=== PATIENT | female | born 1965 | race Caucasian/White ===

== ENCOUNTER 2019-06-12 17:57 | Inpatient (IN) | payer BC ==
[~2019-06-12] VITALS: Ht 157.5 cm; Wt 77.0 kg
[2019-06-12 19:20] LABS: CLARITY,URINE CLEAR (Clear); COLOR,URINE YELLOW (Yellow); GLUCOSE, URINE NEGATIVE (Neg); KETONES,URINE TRACE mg/dl (Neg); LEUKOCYTE ESTERASE ,URINE NEGATIVE (Neg); NITRITES, URINE NEGATIVE (Neg); OCCULT BLOOD,URINE TRACE-INTACT (Neg); PROTEIN,URINE 100 mg/dl (Neg)
[2019-06-12 19:28] LABS: UA COLLECTION TYPE CLN CATCH MIDSTREAM
[2019-06-12 19:30] LABS: BACTERIA,URINE FEW /HPF (Neg); MUCUS STRANDS FEW /LPF (Neg); RBC,URINE 0-2 /HPF (0-2); SQUAMOUS EPITHELIAL CELL,UR FEW /LPF (FEW); WBC,URINE 0-4 /HPF (0-4)
[2019-06-12 20:04] LABS: BASOPHILS % (AUTO) 0.6 % (0-1); EOSINOPHILS % (AUTO) 0.2 % (0-6); HEMATOCRIT 35.8 % (35.0-45.0); HEMOGLOBIN 11.9 g/dl (12.0-16.0); LYMPHOCYTES # (AUTO) 0.8 X10'3 (1.1-4.8); LYMPHOCYTES % (AUTO) 11.4 % (21-51); MEAN CORPUSCULAR HEMOGLOBIN 28.2 PG (27.0-31.0); MEAN CORPUSCULAR HGB CONC 33.3 g/dL (33.0-36.5); MEAN CORPUSCULAR VOLUME 84.7 FL (78-98); MEAN PLATELET VOLUME 8.8 FL (7.4-10.4); MONOCYTES # (AUTO) 0.6 X10'3 (0-0.9); NEUTROPHILS # (AUTO) 5.8 X10'3 (1.8-7.7); NEUTROPHILS % (AUTO) 79.8 % (42-75); PLATELET COUNT 200 X10'3 (140-440); RED BLOOD COUNT 4.23 X10'6 (4.20-5.60); RED CELL DISTRIBUTION WIDTH 14.3 % (11.5-14.5); WHITE BLOOD COUNT 7.3 X10'3 (4.5-11.0)
[2019-06-12 20:21] LABS: PARTIAL THROMBOPLASTIN TIME 33 SECONDS (22-32)
[2019-06-12 20:25] LABS: ALANINE AMINOTRANSFERASE 60 U/L (12-78); ALBUMIN 2.8 G/DL (3.4-5.0); ALBUMIN/GLOBULIN RATIO 0.7 (1.1-1.5); ALKALINE PHOSPHATASE 122 IU/L (46-116); ANION GAP 10 (8-16); ASPARTATE AMINO TRANSFERASE 52 U/L (10-37); BILIRUBIN,TOTAL 0.7 MG/DL (0.1-1.0); BLOOD UREA NITROGEN 14 MG/DL (7-18); BUN/CREATININE RATIO 15.7 (6.6-38.0); CALCIUM 8.7 MG/DL (8.5-10.1); CHLORIDE 99 MMOL/L (99-107); CREATININE 0.89 MG/DL (0.40-0.90); GLUCOSE 131 MG/DL (70-104); POTASSIUM 3.6 MMOL/L (3.5-5.1); SODIUM 133 MMOL/L (135-145); TOTAL CARBON DIOXIDE 24.4 MMOL/L (24-32); eGFR 66 ML/MIN
[2019-06-12] MEDS ORDERED: ketorolac trometh. 30mg/ml inj. IV ONE (20:50)
[2019-06-12 20:56] LABS: C-REACTIVE PROTEIN 18.75 MG/DL (0.0-0.5)
[2019-06-12] MEDS ORDERED: ketorolac tromethamine 15mg/ml inj. IV ONE (21:00)
[2019-06-12] MEDS ORDERED: normal saline 1000ML IV soln IVB ONE (21:15)
[2019-06-12] MEDS ORDERED: LIDOcaine 1% w/epiNEPHrine 1:200,000 30ml vial IM ONE (21:15)
[2019-06-12] MEDS ORDERED: morphine 4 MG/ML inj SYRINge IV ONE (21:45)
[2019-06-12] MEDS ORDERED: OMEP20TA23 PO (22:30)
[2019-06-12] MEDS ORDERED: EST1T PO (22:30)
[2019-06-12] MEDS ORDERED: LEVO137T2 PO (22:30)
[2019-06-12] MEDS: normal saline 1000ml 1,000 ML IV SCH (22:32)
[2019-06-12] MEDS ORDERED: mag hydrox/Alum hydrox/simeth 30ml oral suspension PO PRN (22:35)
[2019-06-13 00:10] VITALS: BP 142/53
--- NOTE | 2019-06-13 00:10 | NUR ---
Received report from Sofi in the ER. Pt transferred to the ortho floor via [facility]. Pt transferred to bed x1 assist, severe pain in right arm and leg was impairing her ability to ambulate. Pt is alert and oriented x3. She reported a 9/10 pain in her right Shoulder, right leg and groin. Pt was medicated with Dilaudid once she was settled in bed.
[2019-06-13] MEDS: ondansetron/PF 4mg/2ml inj IV PRN ×2 (00:40→15:57)
[2019-06-13] MEDS: magnesium hydroxide 30ml (MOM) UD suspension PO PRN (00:42)
[2019-06-13] MEDS: HYDROmorphone inj. 0.5 MG/0.5 ML DISP.SYRIN IV PRN ×4 (04:40→21:49)
[2019-06-13 06:49] VITALS: BP 154/74
[2019-06-13 06:59] LABS: BASOPHILS % (AUTO) 0.3 % (0-1); EOSINOPHILS % (AUTO) 0 % (0-6); HEMATOCRIT 32.1 % (35.0-45.0); HEMOGLOBIN 10.8 g/dl (12.0-16.0); MEAN CORPUSCULAR HEMOGLOBIN 28.2 PG (27.0-31.0); MEAN CORPUSCULAR HGB CONC 33.5 g/dL (33.0-36.5); MEAN CORPUSCULAR VOLUME 84.2 FL (78-98); MEAN PLATELET VOLUME 8.6 FL (7.4-10.4); MONOCYTES # (AUTO) 0.6 X10'3 (0-0.9); MONOCYTES % (AUTO) 7.2 % (2-12); NEUTROPHILS # (AUTO) 6.6 X10'3 (1.8-7.7); NEUTROPHILS % (AUTO) 80.5 % (42-75); PLATELET COUNT 201 X10'3 (140-440); RED BLOOD COUNT 3.81 X10'6 (4.20-5.60); RED CELL DISTRIBUTION WIDTH 14.6 % (11.5-14.5); WHITE BLOOD COUNT 8.2 X10'3 (4.5-11.0)
[2019-06-13 07:15] LABS: RHEUM FACTOR QUAL REFLEX TITER NEGATIVE (Neg)
[2019-06-13 07:33] LABS: ALBUMIN 2.5 G/DL (3.4-5.0); ANION GAP 10 (8-16); BLOOD UREA NITROGEN 11 MG/DL (7-18); BUN/CREATININE RATIO 13.4 (6.6-38.0); CALCIUM 8.1 MG/DL (8.5-10.1); CHLORIDE 102 MMOL/L (99-107); CREATINE KINASE 22 U/L (26-192); CREATININE 0.82 MG/DL (0.40-0.90); GLUCOSE 125 MG/DL (70-104); POTASSIUM 3.7 MMOL/L (3.5-5.1); SODIUM 135 MMOL/L (135-145); TOTAL CARBON DIOXIDE 23.1 MMOL/L (24-32); eGFR 73 ML/MIN
[2019-06-13] MEDS: pantoprazole 40mg Tablet.DR PO SCH (09:02)
[2019-06-13] MEDS: enoxaparin 40mg/0.4ml syringe SUBCUT SCH (09:02)
[2019-06-13] MEDS: levoTHYROXINE 25mcg tablet PO SCH (09:02)
[2019-06-13] MEDS: estradiol 1mg tablet PO SCH (09:03)
[2019-06-13] MEDS: normal saline 1000ml 1,000 ML IV SCH ×2 (09:03→21:58)
[2019-06-13] MEDS: levoTHYROXINE 112mcg tablet PO SCH (09:03)
[2019-06-13] MEDS ORDERED: methylPREDNISolone sod succ 125mg/2ml vial IV ONE (10:45)
[2019-06-13] MEDS: HYDROcodone/acetaminophen 10/325mg tab PO PRN ×3 (11:38→20:13)
[2019-06-13] MEDS: vancomycin/NS 1 GM ADD-VANTAGE 250 ML IV SCH (15:57)
[2019-06-13 18:00] VITALS: BP 131/62
[2019-06-13] MEDS ORDERED: bisacodyl 10mg suppository rectal RC PRN (18:05)
[2019-06-13] MEDS: lactobacillus rhamnosus 10,000 MMU CELLS/CAPSULE PO SCH (20:12)
[2019-06-13 22:00] VITALS: BP 136/64
--- NOTE | 2019-06-13 22:40 | NUR ---
2nd blood culture came out positive. gram pos cocci and clusters. Dr. Mota notified. no new orders received.
[2019-06-14] MEDS: HYDROcodone/acetaminophen 10/325mg tab PO PRN ×5 (00:44→19:51)
[2019-06-14] MEDS: ondansetron/PF 4mg/2ml inj IV PRN ×3 (00:46→14:45)
[2019-06-14] MEDS: vancomycin/NS 1 GM ADD-VANTAGE 250 ML IV SCH ×2 (03:35→17:11)
[2019-06-14] MEDS: normal saline 1000ml 1,000 ML IV SCH ×2 (04:32→14:11)
--- NOTE | 2019-06-14 06:33 | NUR ---
Problems reprioritized. Patient report given, questions answered & plan of care reviewed with YAYO HANNON.
[2019-06-14 06:57] LABS: BASOPHILS % (AUTO) 0.1 % (0-1); EOSINOPHILS % (AUTO) 0.1 % (0-6); HEMATOCRIT 27.7 % (35.0-45.0); HEMOGLOBIN 9.3 g/dl (12.0-16.0); LYMPHOCYTES # (AUTO) 1.6 X10'3 (1.1-4.8); LYMPHOCYTES % (AUTO) 13.9 % (21-51); MEAN CORPUSCULAR HEMOGLOBIN 28.4 PG (27.0-31.0); MEAN CORPUSCULAR HGB CONC 33.5 g/dL (33.0-36.5); MEAN CORPUSCULAR VOLUME 84.9 FL (78-98); MEAN PLATELET VOLUME 8.5 FL (7.4-10.4); MONOCYTES # (AUTO) 1.1 X10'3 (0-0.9); MONOCYTES % (AUTO) 9.2 % (2-12); NEUTROPHILS % (AUTO) 76.7 % (42-75); PLATELET COUNT 185 X10'3 (140-440); RED BLOOD COUNT 3.27 X10'6 (4.20-5.60); RED CELL DISTRIBUTION WIDTH 14.5 % (11.5-14.5); WHITE BLOOD COUNT 11.7 X10'3 (4.5-11.0)
[2019-06-14 07:01] VITALS: BP 164/68
[2019-06-14 07:26] LABS: ALBUMIN 2.1 G/DL (3.4-5.0); ANION GAP 10 (8-16); BLOOD UREA NITROGEN 13 MG/DL (7-18); BUN/CREATININE RATIO 18.1 (6.6-38.0); CALCIUM 8.1 MG/DL (8.5-10.1); CHLORIDE 108 MMOL/L (99-107); CREATININE 0.72 MG/DL (0.40-0.90); GLUCOSE 116 MG/DL (70-104); SODIUM 141 MMOL/L (135-145); TOTAL CARBON DIOXIDE 23.1 MMOL/L (24-32); eGFR 84 ML/MIN
[2019-06-14] MEDS: levoTHYROXINE 25mcg tablet PO SCH (07:54)
[2019-06-14] MEDS: lactobacillus rhamnosus 10,000 MMU CELLS/CAPSULE PO SCH ×2 (07:54→19:50)
[2019-06-14] MEDS: pantoprazole 40mg Tablet.DR PO SCH (07:55)
[2019-06-14] MEDS: levoTHYROXINE 112mcg tablet PO SCH (07:55)
[2019-06-14] MEDS: estradiol 1mg tablet PO SCH (07:55)
[2019-06-14] MEDS: enoxaparin 40mg/0.4ml syringe SUBCUT SCH (07:55)
[2019-06-14] MEDS: HYDROmorphone inj. 0.5 MG/0.5 ML DISP.SYRIN IV PRN ×4 (09:31→22:38)
[2019-06-14 11:14] VITALS: BP 146/68
[2019-06-14] MEDS ORDERED: iohexol 300mg/ml 100ml inj. ONE (16:10)
[2019-06-14 18:00] VITALS: BP 164/68
[2019-06-14 22:00] VITALS: BP 142/66
[2019-06-15] MEDS: HYDROcodone/acetaminophen 10/325mg tab PO PRN ×5 (00:14→23:29)
[2019-06-15] MEDS: vancomycin/NS 1 GM ADD-VANTAGE 250 ML IV SCH ×4 (00:14→23:40)
[2019-06-15] MEDS: normal saline 1000ml 1,000 ML IV SCH ×4 (00:17→23:34)
[2019-06-15] MEDS: HYDROmorphone inj. 0.5 MG/0.5 ML DISP.SYRIN IV PRN ×5 (03:05→21:33)
--- NOTE | 2019-06-15 03:09 | NUR ---
LAB CALLED FOR A POSITIVE BLOOD CULTURE; AEROBIC BOTTLE IS POSITIVE AT 14.77HOURS FOR GRAM (+) COCCI IN CLUSTERS. PRIMARY NURSE AND CHARGE NURSE NOTIFIED. WILL NOTIFY
--- NOTE | 2019-06-15 03:33 | NUR ---
4010D OUSMANE DAVENPORT 53 HERE FOR SHOULDER PAIN/LEG CELLULITIS HAS ANOTHER (3RD) POSITIVE BLOOD CULTURE. ITS GRAM POS COCCI AND CLUSTERS. PT IS ON VANCO. FROM [address] LEDEZMA NOTIFIED. NO NEW ORDER RECEIVED.
--- NOTE | 2019-06-15 06:19 | NUR ---
Patient in room ORTHO 4015. I have received report from YAYO HANNON and had the opportunity to ask questions and assume patient care.
[2019-06-15 06:24] LABS: BASOPHILS % (AUTO) 0.3 % (0-1); EOSINOPHILS # (AUTO) 0.2 X10'3 (0-0.9); HEMATOCRIT 29.5 % (35.0-45.0); HEMOGLOBIN 9.6 g/dl (12.0-16.0); LYMPHOCYTES # (AUTO) 2.7 X10'3 (1.1-4.8); LYMPHOCYTES % (AUTO) 17.3 % (21-51); MEAN CORPUSCULAR HEMOGLOBIN 27.6 PG (27.0-31.0); MEAN CORPUSCULAR HGB CONC 32.4 g/dL (33.0-36.5); MEAN CORPUSCULAR VOLUME 85.1 FL (78-98); MEAN PLATELET VOLUME 8.4 FL (7.4-10.4); MONOCYTES # (AUTO) 1.2 X10'3 (0-0.9); MONOCYTES % (AUTO) 7.6 % (2-12); NEUTROPHILS # (AUTO) 11.6 X10'3 (1.8-7.7); NEUTROPHILS % (AUTO) 73.8 % (42-75); PLATELET COUNT 253 X10'3 (140-440); RED BLOOD COUNT 3.46 X10'6 (4.20-5.60); RED CELL DISTRIBUTION WIDTH 14.7 % (11.5-14.5); WHITE BLOOD COUNT 15.8 X10'3 (4.5-11.0)
[2019-06-15 06:36] VITALS: BP 144/81
[2019-06-15 06:43] LABS: ALBUMIN 1.9 G/DL (3.4-5.0); ANION GAP 10 (8-16); BLOOD UREA NITROGEN 14 MG/DL (7-18); BUN/CREATININE RATIO 16.7 (6.6-38.0); CALCIUM 7.8 MG/DL (8.5-10.1); CHLORIDE 107 MMOL/L (99-107); CREATININE 0.84 MG/DL (0.40-0.90); GLUCOSE 95 MG/DL (70-104); POTASSIUM 3.5 MMOL/L (3.5-5.1); SODIUM 140 MMOL/L (135-145); TOTAL CARBON DIOXIDE 23.1 MMOL/L (24-32); eGFR 71 ML/MIN
[2019-06-15] MEDS: ondansetron/PF 4mg/2ml inj IV PRN ×2 (07:52→21:38)
[2019-06-15] MEDS: levoTHYROXINE 112mcg tablet PO SCH (07:52)
[2019-06-15] MEDS: enoxaparin 40mg/0.4ml syringe SUBCUT SCH (07:52)
[2019-06-15] MEDS: levoTHYROXINE 25mcg tablet PO SCH (07:52)
[2019-06-15] MEDS: lactobacillus rhamnosus 10,000 MMU CELLS/CAPSULE PO SCH ×2 (07:53→19:02)
[2019-06-15] MEDS: pantoprazole 40mg Tablet.DR PO SCH (07:53)
[2019-06-15] MEDS: estradiol 1mg tablet PO SCH (07:53)
[2019-06-15 10:08] VITALS: BP 152/82
[2019-06-15] MEDS ORDERED: VANCOMYCIN LEVEL IV ONE (15:30)
[2019-06-15 18:00] VITALS: BP 140/59
--- NOTE | 2019-06-15 18:09 | NUR ---
Patient in room ORTHO 4015. I have received report from YAYO PAIGE and had the opportunity to ask questions and assume patient care.
[2019-06-15 22:00] VITALS: BP 134/60
[2019-06-16] MEDS: HYDROmorphone inj. 0.5 MG/0.5 ML DISP.SYRIN IV PRN ×4 (01:42→14:16)
[2019-06-16] MEDS: HYDROcodone/acetaminophen 10/325mg tab PO PRN ×5 (03:49→23:35)
[2019-06-16] MEDS: ondansetron/PF 4mg/2ml inj IV PRN ×3 (05:49→23:25)
[2019-06-16 06:00] VITALS: BP 101/68
[2019-06-16 06:06] LABS: ALBUMIN 1.7 G/DL (3.4-5.0); ANION GAP 9 (8-16); BLOOD UREA NITROGEN 13 MG/DL (7-18); BUN/CREATININE RATIO 18.1 (6.6-38.0); CALCIUM 7.8 MG/DL (8.5-10.1); CHLORIDE 104 MMOL/L (99-107); CREATININE 0.72 MG/DL (0.40-0.90); GLUCOSE 103 MG/DL (70-104); POTASSIUM 3.4 MMOL/L (3.5-5.1); SODIUM 137 MMOL/L (135-145); TOTAL CARBON DIOXIDE 24.3 MMOL/L (24-32); eGFR 84 ML/MIN
[2019-06-16 06:09] LABS: BASOPHILS # (AUTO) 0.1 X10'3 (0-0.2); BASOPHILS % (AUTO) 0.3 % (0-1); EOSINOPHILS # (AUTO) 0.3 X10'3 (0-0.9); EOSINOPHILS % (AUTO) 1.6 % (0-6); HEMATOCRIT 28.5 % (35.0-45.0); HEMOGLOBIN 9.3 g/dl (12.0-16.0); LYMPHOCYTES # (AUTO) 2.5 X10'3 (1.1-4.8); LYMPHOCYTES % (AUTO) 15.6 % (21-51); MEAN CORPUSCULAR HEMOGLOBIN 27.6 PG (27.0-31.0); MEAN CORPUSCULAR HGB CONC 32.8 g/dL (33.0-36.5); MEAN CORPUSCULAR VOLUME 83.9 FL (78-98); MEAN PLATELET VOLUME 8.1 FL (7.4-10.4); MONOCYTES % (AUTO) 5.9 % (2-12); NEUTROPHILS # (AUTO) 12.5 X10'3 (1.8-7.7); NEUTROPHILS % (AUTO) 76.6 % (42-75); PLATELET COUNT 280 X10'3 (140-440); RED BLOOD COUNT 3.39 X10'6 (4.20-5.60); RED CELL DISTRIBUTION WIDTH 14.9 % (11.5-14.5); WHITE BLOOD COUNT 16.3 X10'3 (4.5-11.0)
--- NOTE | 2019-06-16 06:37 | NUR ---
Problems reprioritized. Patient report given, questions answered & plan of care reviewed with YAYO TURNER.
--- NOTE | 2019-06-16 06:44 | NUR ---
Patient in room ORTHO 4015. I have received report from Chelle ZEE and had the opportunity to ask questions and assume patient care.
[2019-06-16] MEDS: levoTHYROXINE 25mcg tablet PO SCH (07:17)
[2019-06-16] MEDS: enoxaparin 40mg/0.4ml syringe SUBCUT SCH (07:17)
[2019-06-16] MEDS: levoTHYROXINE 112mcg tablet PO SCH (07:17)
[2019-06-16] MEDS: pantoprazole 40mg Tablet.DR PO SCH (07:17)
[2019-06-16] MEDS: lactobacillus rhamnosus 10,000 MMU CELLS/CAPSULE PO SCH ×2 (07:17→19:13)
[2019-06-16] MEDS: vancomycin/NS 1 GM ADD-VANTAGE 250 ML IV SCH (07:18)
[2019-06-16] MEDS: magnesium hydroxide 30ml (MOM) UD suspension PO PRN (07:29)
--- NOTE | 2019-06-16 08:36 | NUR ---
PAGER ID: [phone] MESSAGE: RE: [id number] Stanley Clarke is 3.4 can replacement be ordered please, will continue to monitor
[2019-06-16] MEDS: estradiol 1mg tablet PO SCH (09:28)
[2019-06-16 10:00] VITALS: BP 132/63
[2019-06-16] MEDS ORDERED: potassium Cl 20 mEq SR tablet PO STA (10:07)
[2019-06-16] MEDS: cefazolin/dext.iso 2gm/100ml 100 ML IV SCH (15:37)
[2019-06-16 18:00] VITALS: BP 157/76
--- NOTE | 2019-06-16 18:15 | NUR ---
Problems reprioritized. Patient report given, questions answered & plan of care reviewed with Keara ZEE.
[2019-06-16] MEDS ORDERED: HYDROcodone/acetaminophen 10/325mg tab PO PRN (18:50)
--- NOTE | 2019-06-16 19:08 | NUR ---
talked to Gabe about pain control. ordered to start 2 norco 10's now, increased dilaudid to q6 hours and added cymblata nightly first dose now. pt concerned about pain control and wants routine - will put times on board when pt can request pain medication. educated on side effects and efficacy of meds.
[2019-06-16] MEDS: duloxetine 30mg CAPSULE.DR PO SCH (19:13)
[2019-06-16] MEDS ORDERED: ketorolac tromethamine 15mg/ml inj. IV SCH (20:00)
--- NOTE | 2019-06-16 20:46 | NUR ---
pt refuses scd's b/c of leg tenderness Addendum: 06/16/19 at 6 by Keara Daugherty RN Amended: Links added.
[2019-06-16 22:00] VITALS: BP 131/39
--- NOTE | 2019-06-16 23:42 | NUR ---
pt stated the 2 norco's made her sick to her stomach. wants to try just 1 norco with zofran.
[2019-06-17] MEDS: cefazolin/dext.iso 2gm/100ml 100 ML IV SCH ×4 (00:09→23:51)
[2019-06-17] MEDS: HYDROmorphone inj. 0.5 MG/0.5 ML DISP.SYRIN IV PRN ×3 (01:09→23:10)
[2019-06-17] MEDS: HYDROcodone/acetaminophen 10/325mg tab PO PRN ×3 (05:01→17:41)
--- NOTE | 2019-06-17 05:30 | NUR ---
pt requested IVF restarted. "I think I'm dehydrated. I've been sweating all night and my neck and head hurts." orders received from Sofía DONNELLY.
[2019-06-17] MEDS: ondansetron/PF 4mg/2ml inj IV PRN ×3 (05:36→23:09)
[2019-06-17] MEDS: normal saline 1000ml 1,000 ML IV SCH ×2 (05:36→17:40)
[2019-06-17 06:00] VITALS: BP 142/77
--- NOTE | 2019-06-17 06:34 | NUR ---
reported to days. noted pt states "I think I'm feeling a little better. make sure I get food with my norco"
[2019-06-17 06:43] LABS: BASOPHILS # (AUTO) 0.1 X10'3 (0-0.2); BASOPHILS % (AUTO) 0.3 % (0-1); EOSINOPHILS # (AUTO) 0.3 X10'3 (0-0.9); EOSINOPHILS % (AUTO) 1.5 % (0-6); HEMATOCRIT 29.4 % (35.0-45.0); HEMOGLOBIN 9.6 g/dl (12.0-16.0); LYMPHOCYTES % (AUTO) 11.8 % (21-51); MEAN CORPUSCULAR HEMOGLOBIN 27.6 PG (27.0-31.0); MEAN CORPUSCULAR HGB CONC 32.6 g/dL (33.0-36.5); MEAN CORPUSCULAR VOLUME 84.6 FL (78-98); MEAN PLATELET VOLUME 7.8 FL (7.4-10.4); MONOCYTES % (AUTO) 5.8 % (2-12); NEUTROPHILS # (AUTO) 13.6 X10'3 (1.8-7.7); NEUTROPHILS % (AUTO) 80.6 % (42-75); PLATELET COUNT 348 X10'3 (140-440); RED BLOOD COUNT 3.48 X10'6 (4.20-5.60); RED CELL DISTRIBUTION WIDTH 14.5 % (11.5-14.5); WHITE BLOOD COUNT 16.9 X10'3 (4.5-11.0)
[2019-06-17 07:03] LABS: ALBUMIN 1.9 G/DL (3.4-5.0); ANION GAP 8 (8-16); BLOOD UREA NITROGEN 16 MG/DL (7-18); BUN/CREATININE RATIO 17.6 (6.6-38.0); CALCIUM 8.2 MG/DL (8.5-10.1); CHLORIDE 105 MMOL/L (99-107); CREATININE 0.91 MG/DL (0.40-0.90); GLUCOSE 128 MG/DL (70-104); POTASSIUM 3.9 MMOL/L (3.5-5.1); SODIUM 138 MMOL/L (135-145); TOTAL CARBON DIOXIDE 25.3 MMOL/L (24-32); eGFR 64 ML/MIN
[2019-06-17] MEDS: estradiol 1mg tablet PO SCH (07:39)
[2019-06-17] MEDS: levoTHYROXINE 112mcg tablet PO SCH (07:39)
[2019-06-17] MEDS: pantoprazole 40mg Tablet.DR PO SCH (07:40)
[2019-06-17] MEDS: lactobacillus rhamnosus 10,000 MMU CELLS/CAPSULE PO SCH ×2 (07:40→20:13)
[2019-06-17] MEDS: levoTHYROXINE 25mcg tablet PO SCH (07:40)
[2019-06-17] MEDS: enoxaparin 40mg/0.4ml syringe SUBCUT SCH (07:40)
--- NOTE | 2019-06-17 08:10 | NUR ---
PAGER ID: [phone] MESSAGE: Khadijah 1779 re Kera Clarke in [id number]- she is nauseated still after giving Zofran, can we have something else like Reglan? Thank you
[2019-06-17] MEDS: proCHLORperazine 10 MG/2 ml inj IV PRN (08:35)
[2019-06-17 10:00] VITALS: BP 144/81
[2019-06-17 18:00] VITALS: BP 139/76
--- NOTE | 2019-06-17 18:30 | NUR ---
Patient in room ORTHO 4015. I have received report from YAYO Lucio and had the opportunity to ask questions and assume patient care.
[2019-06-17] MEDS: duloxetine 30mg CAPSULE.DR PO SCH (20:12)
[2019-06-17 22:00] VITALS: BP 153/87
[2019-06-18] MEDS: normal saline 1000ml 1,000 ML IV SCH ×2 (01:25→04:16)
[2019-06-18] MEDS: HYDROcodone/acetaminophen 10/325mg tab PO PRN ×4 (03:35→20:12)
[2019-06-18 06:00] VITALS: BP 141/76
--- NOTE | 2019-06-18 06:31 | NUR ---
Problems reprioritized. Patient report given, questions answered & plan of care reviewed with YAYO Lucio.
--- NOTE | 2019-06-18 07:25 | NUR ---
PAGER ID: [phone] MESSAGE: Khadijah [address] Kera cruz in [id number]- no labs ordered today, would you like some labs drawn? Thanks!
[2019-06-18] MEDS: estradiol 1mg tablet PO SCH (08:09)
[2019-06-18] MEDS: lactobacillus rhamnosus 10,000 MMU CELLS/CAPSULE PO SCH ×2 (08:09→19:38)
[2019-06-18] MEDS: levoTHYROXINE 112mcg tablet PO SCH (08:09)
[2019-06-18] MEDS: pantoprazole 40mg Tablet.DR PO SCH (08:09)
[2019-06-18] MEDS: cefazolin/dext.iso 2gm/100ml 100 ML IV SCH ×3 (08:09→23:21)
[2019-06-18] MEDS: levoTHYROXINE 25mcg tablet PO SCH (08:09)
[2019-06-18] MEDS: enoxaparin 40mg/0.4ml syringe SUBCUT SCH (08:10)
[2019-06-18] MEDS: ondansetron/PF 4mg/2ml inj IV PRN ×2 (08:11→14:45)
[2019-06-18 09:57] VITALS: BP 140/84
[2019-06-18] MEDS ORDERED: furosemide 20MG tablet PO ONE (11:15)
[2019-06-18 11:36] LABS: BASOPHILS % (AUTO) 0.2 % (0-1); EOSINOPHILS # (AUTO) 0.2 X10'3 (0-0.9); EOSINOPHILS % (AUTO) 1.6 % (0-6); HEMATOCRIT 29.2 % (35.0-45.0); HEMOGLOBIN 9.6 g/dl (12.0-16.0); LYMPHOCYTES # (AUTO) 1.9 X10'3 (1.1-4.8); LYMPHOCYTES % (AUTO) 14.9 % (21-51); MEAN CORPUSCULAR HEMOGLOBIN 27.5 PG (27.0-31.0); MEAN CORPUSCULAR VOLUME 83.4 FL (78-98); MONOCYTES # (AUTO) 0.8 X10'3 (0-0.9); MONOCYTES % (AUTO) 6.4 % (2-12); NEUTROPHILS # (AUTO) 9.7 X10'3 (1.8-7.7); NEUTROPHILS % (AUTO) 76.9 % (42-75); PLATELET COUNT 359 X10'3 (140-440); RED CELL DISTRIBUTION WIDTH 14.4 % (11.5-14.5); WHITE BLOOD COUNT 12.6 X10'3 (4.5-11.0)
[2019-06-18 11:40] LABS: ALBUMIN 1.8 G/DL (3.4-5.0); ANION GAP 8 (8-16); BLOOD UREA NITROGEN 20 MG/DL (7-18); BUN/CREATININE RATIO 18.7 (6.6-38.0); CALCIUM 8.3 MG/DL (8.5-10.1); CHLORIDE 103 MMOL/L (99-107); CREATININE 1.07 MG/DL (0.40-0.90); GLUCOSE 115 MG/DL (70-104); MAGNESIUM 2.2 MG/DL (1.5-2.4); POTASSIUM 3.3 MMOL/L (3.5-5.1); SODIUM 136 MMOL/L (135-145); TOTAL CARBON DIOXIDE 24.8 MMOL/L (24-32); eGFR 53 ML/MIN
--- NOTE | 2019-06-18 12:09 | NUR ---
PAGER ID: [phone] MESSAGE: Khadijah Reyna0 ebla dumont in [id number] - kidney function worsening, please review and advise- thanks!
--- NOTE | 2019-06-18 14:49 | NUR ---
Initial: Pt admit w/ MSSA sepsis likely from nasal source given recent surgery per ID MD. Pt also has bilateral thigh and RLE cellulitis on MRI w/ fever on admit. Pt complains R shoulder pain but no infectious process likely there per MD note. Currently noted to be nauseous w/ 0-25% avg PO meals this admit but did increase to 50% avg past 2 meals today. LBM 06/17. Ensure pudding TIDWM added for additional protein needs given DX. Pt will need high protein ed once more appropriate prior to d/c. Rec: 1. continue regular diet 2. ensure pudding TIDWM 3. high protein ed once stable prior to d/c 4. wt per rx Addendum: 06/18/19 at [address] Amended: Links added.
--- NOTE | 2019-06-18 15:22 | NUR ---
PAGER ID: [phone] MESSAGE: Khadijah [id number] re tim Cote in 4015a, K+ 3.3 and there is an order for Lasix 20mg x 1, do you want me to add replacement protocol? Also can we try ultram for her instead of the [place]? I think its making her nauseated.
[2019-06-18] MEDS: HYDROmorphone inj. 0.5 MG/0.5 ML DISP.SYRIN IV PRN (15:41)
--- NOTE | 2019-06-18 15:59 | NUR ---
WOUND INFECTION EDUCATION PROVIDED BY [facility] 1. Patient instructed to call their primary doctor, or go the ED immediately if any of the following symptoms occur: * Increased pain in wound * Increase in drainage from the wound * Redness in the skin surrounding the wound * Warmth in the skin surrounding the wound * Bleeding from the wound * Temperature of 101 or greater 2. If any of these occur while in the hospital tell a nurse immediately. Addendum: 06/18/19 at 1559 by Meliza Esquivel RN Amended: Links added.
--- NOTE | 2019-06-18 16:53 | NUR ---
I talked to Dr. Bernal to replace K per protocol and add 1 tramadol 50mg tab q6h prn, keep norco and okay to give lasix.
[2019-06-18] MEDS ORDERED: potassium Cl 20 mEq SR tablet PO PRN ×2 (16:55)
[2019-06-18] MEDS ORDERED: magnesium Cl slow-release 64mg tablet PO PRN (16:55)
[2019-06-18] MEDS ORDERED: potassium CL 10mEq/100ml bag 100 ML IV PRN (16:55)
[2019-06-18] MEDS ORDERED: magnesium 4gm in 100ml NS 100 ML IV PRN (16:55)
[2019-06-18] MEDS: traMADol 50MG tablet PO PRN (17:24)
--- NOTE | 2019-06-18 17:40 | NUR ---
PAGER ID: [phone] MESSAGE: Khadijah Axel0 elba Vince Cote in -FYI -just received +BC from 06/16 at 5:21. 59 hrs to become positive. aerobic gram+ cocci in clusters
--- NOTE | 2019-06-18 17:45 | NUR ---
pt refused to take the lasix, states she would like to take it in the morning. She does not want to be up to urinate all night. The lasix was not given earlier because the K was 3.3 and I had no replacement orders, paged multiple times with no answer until after 1700, at which point was too late for the pt to take the lasix. Plan to address with DR Sy again in the a.m.
[2019-06-18 19:00] VITALS: BP 161/91
[2019-06-18] MEDS: proCHLORperazine 10 MG/2 ml inj IV PRN (19:34)
[2019-06-18] MEDS: duloxetine 30mg CAPSULE.DR PO SCH (19:39)
[2019-06-18] MEDS ORDERED: gadopentetate dimeglumine 10 MMOL/20 ML syringe IV ONE (20:21)
[2019-06-18 22:00] VITALS: BP 160/85
[2019-06-18] MEDS: cyclobenzaprine 10mg tablet PO PRN (23:21)
[2019-06-19] MEDS: HYDROcodone/acetaminophen 10/325mg tab PO PRN (02:18)
[2019-06-19 06:00] VITALS: BP 164/92
[2019-06-19 07:00] LABS: BASOPHILS % (AUTO) 0.3 % (0-1); EOSINOPHILS # (AUTO) 0.2 X10'3 (0-0.9); EOSINOPHILS % (AUTO) 1.6 % (0-6); HEMATOCRIT 28.3 % (35.0-45.0); HEMOGLOBIN 9.3 g/dl (12.0-16.0); LYMPHOCYTES # (AUTO) 2.1 X10'3 (1.1-4.8); LYMPHOCYTES % (AUTO) 17.7 % (21-51); MEAN CORPUSCULAR HEMOGLOBIN 27.5 PG (27.0-31.0); MEAN CORPUSCULAR VOLUME 83.4 FL (78-98); MEAN PLATELET VOLUME 7.8 FL (7.4-10.4); MONOCYTES % (AUTO) 8.7 % (2-12); NEUTROPHILS # (AUTO) 8.6 X10'3 (1.8-7.7); NEUTROPHILS % (AUTO) 71.7 % (42-75); PLATELET COUNT 406 X10'3 (140-440); RED BLOOD COUNT 3.39 X10'6 (4.20-5.60); RED CELL DISTRIBUTION WIDTH 14.1 % (11.5-14.5)
[2019-06-19 07:10] LABS: ALBUMIN 1.8 G/DL (3.4-5.0); ANION GAP 10 (8-16); BLOOD UREA NITROGEN 20 MG/DL (7-18); BUN/CREATININE RATIO 16.8 (6.6-38.0); CALCIUM 8.1 MG/DL (8.5-10.1); CHLORIDE 104 MMOL/L (99-107); CREATININE 1.19 MG/DL (0.40-0.90); GLUCOSE 102 MG/DL (70-104); MAGNESIUM 2.2 MG/DL (1.5-2.4); POTASSIUM 3.7 MMOL/L (3.5-5.1); SODIUM 137 MMOL/L (135-145); TOTAL CARBON DIOXIDE 23.5 MMOL/L (24-32); eGFR 47 ML/MIN
[2019-06-19] MEDS: levoTHYROXINE 112mcg tablet PO SCH (07:25)
[2019-06-19] MEDS: estradiol 1mg tablet PO SCH (07:26)
[2019-06-19] MEDS: cefazolin/dext.iso 2gm/100ml 100 ML IV SCH ×2 (07:26→18:38)
[2019-06-19] MEDS: pantoprazole 40mg Tablet.DR PO SCH (07:26)
[2019-06-19] MEDS: levoTHYROXINE 25mcg tablet PO SCH (07:26)
[2019-06-19] MEDS: lactobacillus rhamnosus 10,000 MMU CELLS/CAPSULE PO SCH ×2 (07:26→19:33)
[2019-06-19] MEDS: enoxaparin 40mg/0.4ml syringe SUBCUT SCH (07:27)
[2019-06-19] MEDS: acetaminophen 325mg tablet PO PRN ×3 (07:28→18:36)
[2019-06-19] MEDS: traMADol 50MG tablet PO PRN ×3 (07:28→18:36)
[2019-06-19 10:00] VITALS: BP 169/92
[2019-06-19] MEDS ORDERED: furosemide 20MG tablet PO ONE (12:25)
--- NOTE | 2019-06-19 12:38 | NUR ---
PAGER ID: [phone] MESSAGE: Khadijah Reyna0 Kera cruz in 1096m- can we increase the tramadol to 100mg? and/or increase the frequency? 50 mg Q6 not quite effective enough? Please call me, thanks!
--- NOTE | 2019-06-19 15:33 | NUR ---
PAGER ID: [phone] MESSAGE: Khadijah [address] Brizuelasa- the wound on her heel is getting worse and the redness is spreading. Pitting edema. Please call me, thanks! Addendum: 06/19/19 at 1656 by Maureen Ji RN callback from , received orders for stat MRI RLE
--- NOTE | 2019-06-19 18:30 | NUR ---
Patient in room ORTHO 4015. I have received report from Maureen ZEE and had the opportunity to ask questions and assume patient care.
[2019-06-19] MEDS: duloxetine 30mg CAPSULE.DR PO SCH (20:10)
[2019-06-19 22:00] VITALS: BP 163/89
[2019-06-20] MEDS: cefazolin/dext.iso 2gm/100ml 100 ML IV SCH ×3 (00:32→16:14)
[2019-06-20] MEDS: traMADol 50MG tablet PO PRN ×4 (00:34→20:45)
[2019-06-20] MEDS: cyclobenzaprine 10mg tablet PO PRN ×2 (00:34→20:52)
[2019-06-20] MEDS: acetaminophen 325mg tablet PO PRN ×3 (00:34→20:46)
[2019-06-20 06:00] VITALS: BP 163/90
--- NOTE | 2019-06-20 06:28 | NUR ---
Problems reprioritized. Patient report given, questions answered & plan of care reviewed with Eleanor ZEE.
[2019-06-20] MEDS: levoTHYROXINE 112mcg tablet PO SCH (09:13)
[2019-06-20] MEDS: levoTHYROXINE 25mcg tablet PO SCH (09:13)
[2019-06-20] MEDS: estradiol 1mg tablet PO SCH (09:14)
[2019-06-20] MEDS: lactobacillus rhamnosus 10,000 MMU CELLS/CAPSULE PO SCH ×2 (09:14→20:44)
[2019-06-20] MEDS: pantoprazole 40mg Tablet.DR PO SCH (09:14)
[2019-06-20] MEDS: enoxaparin 40mg/0.4ml syringe SUBCUT SCH (09:15)
[2019-06-20 10:57] LABS: BASOPHILS # (AUTO) 0.1 X10'3 (0-0.2); BASOPHILS % (AUTO) 0.4 % (0-1); EOSINOPHILS # (AUTO) 0.2 X10'3 (0-0.9); EOSINOPHILS % (AUTO) 1.8 % (0-6); HEMATOCRIT 28.3 % (35.0-45.0); HEMOGLOBIN 9.4 g/dl (12.0-16.0); LYMPHOCYTES # (AUTO) 2.3 X10'3 (1.1-4.8); LYMPHOCYTES % (AUTO) 16.9 % (21-51); MEAN CORPUSCULAR HEMOGLOBIN 27.5 PG (27.0-31.0); MEAN CORPUSCULAR VOLUME 83.4 FL (78-98); MEAN PLATELET VOLUME 7.9 FL (7.4-10.4); MONOCYTES # (AUTO) 1.1 X10'3 (0-0.9); MONOCYTES % (AUTO) 7.8 % (2-12); NEUTROPHILS # (AUTO) 9.9 X10'3 (1.8-7.7); NEUTROPHILS % (AUTO) 73.1 % (42-75); PLATELET COUNT 444 X10'3 (140-440); RED CELL DISTRIBUTION WIDTH 14.3 % (11.5-14.5); WHITE BLOOD COUNT 13.5 X10'3 (4.5-11.0)
--- NOTE | 2019-06-20 12:24 | NUR ---
reassessment: Pt seen by RD for written/verbal high protein ed w/ RD contact information provided. Pt agrees to ensure pudding TIDWM; dietary notified. Pt reports low appetite r/t pain; normally good appetite at home. Pt declines further high protein food options PO 0-25% avg meals. LBM 06/19. Will continue to monitor. Rec: 1. continue regular diet 2. ensure pudding TIDWM 3. wt per rx Addendum: 06/20/19 at [address] Amended: Links added.
[2019-06-20 17:00] VITALS: BP_SYST 160; BP_SYST 169; BP_DIAS 95; BP_DIAS 99
--- NOTE | 2019-06-20 18:10 | NUR ---
Patient in room ORTHO 4015. I have received report from Eleanor ZEE and had the opportunity to ask questions and assume patient care.
[2019-06-20] MEDS: duloxetine 30mg CAPSULE.DR PO SCH (20:44)
[2019-06-20 22:00] VITALS: BP 175/97
[2019-06-21] MEDS: cefazolin/dext.iso 2gm/100ml 100 ML IV SCH ×3 (00:12→15:59)
[2019-06-21] MEDS: acetaminophen 325mg tablet PO PRN ×4 (03:09→20:58)
[2019-06-21] MEDS: traMADol 50MG tablet PO PRN ×4 (03:11→20:58)
[2019-06-21 06:00] VITALS: BP 174/94
--- NOTE | 2019-06-21 06:00 | NUR ---
Problems reprioritized. Patient report given, questions answered & plan of care reviewed with Eleanor ZEE.
--- NOTE | 2019-06-21 06:30 | NUR ---
Patient in room ORTHO 4015. I have received report from YAYO Dasilva and had the opportunity to ask questions and assume patient care.
[2019-06-21] MEDS: levoTHYROXINE 112mcg tablet PO SCH (07:02)
[2019-06-21] MEDS: levoTHYROXINE 25mcg tablet PO SCH (07:02)
[2019-06-21] MEDS: pantoprazole 40mg Tablet.DR PO SCH (07:03)
[2019-06-21 07:08] LABS: ALBUMIN 1.8 G/DL (3.4-5.0); ANION GAP 8 (8-16); BASOPHILS # (AUTO) 0.1 X10'3 (0-0.2); BASOPHILS % (AUTO) 0.5 % (0-1); BLOOD UREA NITROGEN 18 MG/DL (7-18); BUN/CREATININE RATIO 15.8 (6.6-38.0); CALCIUM 8.2 MG/DL (8.5-10.1); CHLORIDE 105 MMOL/L (99-107); CREATININE 1.14 MG/DL (0.40-0.90); EOSINOPHILS # (AUTO) 0.2 X10'3 (0-0.9); GLUCOSE 87 MG/DL (70-104); HEMATOCRIT 27.2 % (35.0-45.0); HEMOGLOBIN 9.3 g/dl (12.0-16.0); LYMPHOCYTES # (AUTO) 2.7 X10'3 (1.1-4.8); LYMPHOCYTES % (AUTO) 21.9 % (21-51); MEAN CORPUSCULAR HGB CONC 34.1 g/dL (33.0-36.5); MEAN CORPUSCULAR VOLUME 82.3 FL (78-98); MEAN PLATELET VOLUME 7.8 FL (7.4-10.4); MONOCYTES # (AUTO) 0.9 X10'3 (0-0.9); MONOCYTES % (AUTO) 7.2 % (2-12); NEUTROPHILS # (AUTO) 8.4 X10'3 (1.8-7.7); NEUTROPHILS % (AUTO) 68.4 % (42-75); PLATELET COUNT 450 X10'3 (140-440); POTASSIUM 3.8 MMOL/L (3.5-5.1); RED BLOOD COUNT 3.31 X10'6 (4.20-5.60); SODIUM 138 MMOL/L (135-145); TOTAL CARBON DIOXIDE 24.7 MMOL/L (24-32); WHITE BLOOD COUNT 12.3 X10'3 (4.5-11.0); eGFR 50 ML/MIN
[2019-06-21] MEDS: estradiol 1mg tablet PO SCH (08:56)
[2019-06-21] MEDS: lactobacillus rhamnosus 10,000 MMU CELLS/CAPSULE PO SCH ×2 (08:56→20:24)
[2019-06-21] MEDS: enoxaparin 40mg/0.4ml syringe SUBCUT SCH (08:57)
[2019-06-21 10:00] VITALS: BP 165/93
[2019-06-21] MEDS ORDERED: furosemide 20 MG/2 ML vial IV ONE (10:20)
--- NOTE | 2019-06-21 14:36 | NUR ---
Pt educated on PICC line risks and benefits, pt states she would like to think about the procedure before signing consent at this time. Pt encouraged to notify RN if she decides to agree to PICC line placement
[2019-06-21] MEDS: cyclobenzaprine 10mg tablet PO PRN (16:22)
--- NOTE | 2019-06-21 18:25 | NUR ---
Problems reprioritized. Patient report given, questions answered & plan of care reviewed with YAYO Edmonds.
[2019-06-21] MEDS: duloxetine 30mg CAPSULE.DR PO SCH (20:24)
[2019-06-21 22:00] VITALS: BP 169/92
[2019-06-22] MEDS: cyclobenzaprine 10mg tablet PO PRN (00:34)
[2019-06-22] MEDS: cefazolin/dext.iso 2gm/100ml 100 ML IV SCH ×3 (00:35→15:11)
[2019-06-22] MEDS: ondansetron/PF 4mg/2ml inj IV PRN ×2 (01:17→14:49)
[2019-06-22] MEDS: acetaminophen 325mg tablet PO PRN ×3 (03:18→15:58)
[2019-06-22] MEDS: traMADol 50MG tablet PO PRN ×3 (03:19→14:50)
[2019-06-22 07:00] VITALS: BP 167/96
[2019-06-22] MEDS: levoTHYROXINE 25mcg tablet PO SCH (08:09)
[2019-06-22] MEDS: estradiol 1mg tablet PO SCH (08:09)
[2019-06-22] MEDS: lactobacillus rhamnosus 10,000 MMU CELLS/CAPSULE PO SCH (08:09)
[2019-06-22] MEDS: levoTHYROXINE 112mcg tablet PO SCH (08:09)
[2019-06-22] MEDS: pantoprazole 40mg Tablet.DR PO SCH (08:09)
[2019-06-22] MEDS: enoxaparin 40mg/0.4ml syringe SUBCUT SCH (08:10)
[2019-06-22 09:16] LABS: BASOPHILS # (AUTO) 0.1 X10'3 (0-0.2); BASOPHILS % (AUTO) 0.6 % (0-1); EOSINOPHILS # (AUTO) 0.2 X10'3 (0-0.9); HEMATOCRIT 28.2 % (35.0-45.0); HEMOGLOBIN 9.5 g/dl (12.0-16.0); LYMPHOCYTES # (AUTO) 2.5 X10'3 (1.1-4.8); LYMPHOCYTES % (AUTO) 22.1 % (21-51); MEAN CORPUSCULAR HEMOGLOBIN 28.2 PG (27.0-31.0); MEAN CORPUSCULAR HGB CONC 33.7 g/dL (33.0-36.5); MEAN CORPUSCULAR VOLUME 83.8 FL (78-98); MEAN PLATELET VOLUME 7.9 FL (7.4-10.4); MONOCYTES # (AUTO) 0.7 X10'3 (0-0.9); MONOCYTES % (AUTO) 6.3 % (2-12); NEUTROPHILS # (AUTO) 7.9 X10'3 (1.8-7.7); PLATELET COUNT 527 X10'3 (140-440); RED BLOOD COUNT 3.36 X10'6 (4.20-5.60); RED CELL DISTRIBUTION WIDTH 14.5 % (11.5-14.5); WHITE BLOOD COUNT 11.4 X10'3 (4.5-11.0)
[2019-06-22 09:17] LABS: ALBUMIN 2.1 G/DL (3.4-5.0); BLOOD UREA NITROGEN 16 MG/DL (7-18); BUN/CREATININE RATIO 14.4 (6.6-38.0); CALCIUM 8.3 MG/DL (8.5-10.1); CHLORIDE 104 MMOL/L (99-107); CREATININE 1.11 MG/DL (0.40-0.90); GLUCOSE 106 MG/DL (70-104); POTASSIUM 3.8 MMOL/L (3.5-5.1); TOTAL CARBON DIOXIDE 28.4 MMOL/L (24-32); eGFR 51 ML/MIN
[2019-06-22 09:34] LABS: ANION GAP 7 (8-16); SODIUM 139 MMOL/L (135-145)
[2019-06-22 10:00] VITALS: BP 157/84
[2019-06-22 12:01] LABS: TOTAL CELLS COUNTED 100
[2019-06-22 12:03] LABS: ANISOCYTOSIS FEW; PLATELET ESTIMATE INCREASED; POLYCHROMASIA FEW
--- NOTE | 2019-06-22 15:31 | NUR ---
report given to [facility] all questions answered
--- NOTE | 2019-06-22 15:43 | NUR ---
PT STATES SHE IS HAVING PAIN AFTER PICC PLACEMENT. OFFERED TO ORDER CHEST XRAY TO CONFIRM PLACEMENT BUT ECG SHOWED PERFECT P WAVE CHANGES. PT DENIES WANTING CHEST XRAY. PT ENCOURAGED TO NOTIFY RN IF PROBLEMS ARISE. EMMETT ZEE
--- NOTE | 2019-06-22 16:00 | NUR ---
patient transfered to [facility] via transportation service patient in stable condition all questions answered
== END 2019-06-22 16:09 | DRG 872 ==
LOC: ER 17:58 → ORTHO 4S 06-13 00:10
PROVIDERS: ADMIT Hospitalist; ATTEND Family Medicine
PROC: 02HV33Z Insertion of Infusion Device into Superior Vena Cava, Percutaneous Approach (ICD-10-PCS; principal; 2019-06-22)
PROC: B548ZZA Ultrasonography of Superior Vena Cava, Guidance (ICD-10-PCS; 2019-06-22)
DX: A41.01 Sepsis due to Methicillin susceptible Staphylococcus aureus (principal); E44.0 Moderate protein-calorie malnutrition; L03.115 Cellulitis of right lower limb; L02.419 Cutaneous abscess of limb, unspecified; M13.0 Polyarthritis, unspecified; R21 Rash and other nonspecific skin eruption; K76.9 Liver disease, unspecified; M65.9 Synovitis and tenosynovitis, unspecified; E03.9 Hypothyroidism, unspecified; M79.7 Fibromyalgia; L04.3 Acute lymphadenitis of lower limb; L04.1 Acute lymphadenitis of trunk; E87.6 Hypokalemia; Z68.31 Body mass index [BMI] 31.0-31.9, adult; Z83.49 Family history of other endocrine, nutritional and metabolic diseases; Z88.0 Allergy status to penicillin; Z88.2 Allergy status to sulfonamides; Z90.710 Acquired absence of both cervix and uterus
CPT/HCPCS: 36415; 36569; 71045; 72197; 73701; 73721; 76937; 80048; 80053; 80202; 81001; 82550; 83605; 83735; 84145; 84443; 85025; 85610; 85651; 85730; 86038; 86140; 86430; 87040; 87077; 87186; 93005; 93306; 93971; 97110; 97116; 97162; 97530; 97535; A9579; G0378; J0780; J1170; J1650; J1885; J1940; J2270; J2405; J2930; J3370; J7030; Q9967

== ENCOUNTER 2023-02-22 14:07 | Emergency (ER) | payer BC ==
[~2023-02-22] VITALS: Ht 157.5 cm; Wt 72.7 kg
[~2023-02-22 14:07] MED LIST: EST1T PO; LEVO137T2 PO; OMEP20TA23 PO
[2023-02-22 14:21] VITALS: BP 160/92
[2023-02-22 19:53] LABS: BASOPHILS % (AUTO) 0.5 % (0-1); EOSINOPHILS # (AUTO) 0.2 X10'3 (0-0.9); EOSINOPHILS % (AUTO) 2.8 % (0-6); HEMATOCRIT 40.5 % (35.0-45.0); HEMOGLOBIN 13.5 g/dl (12.0-16.0); LYMPHOCYTES # (AUTO) 4.4 X10'3 (1.1-4.8); MEAN CORPUSCULAR HEMOGLOBIN 27.4 PG (27.0-31.0); MEAN CORPUSCULAR HGB CONC 33.3 g/dL (33.0-36.5); MEAN CORPUSCULAR VOLUME 82.1 FL (78-98); MEAN PLATELET VOLUME 8.6 FL (7.4-10.4); MONOCYTES # (AUTO) 0.5 X10'3 (0-0.9); MONOCYTES % (AUTO) 6.1 % (2-12); NEUTROPHILS # (AUTO) 3.6 X10'3 (1.8-7.7); NEUTROPHILS % (AUTO) 40.6 % (42-75); PLATELET COUNT 256 X10'3 (140-440); RED BLOOD COUNT 4.93 X10'6 (4.20-5.60); RED CELL DISTRIBUTION WIDTH 13.7 % (11.5-14.5); WHITE BLOOD COUNT 8.8 X10'3 (4.5-11.0)
[2023-02-22 20:05] LABS: ALANINE AMINOTRANSFERASE 54 U/L (12-78); ALBUMIN 3.8 G/DL (3.4-5.0); ALBUMIN/GLOBULIN RATIO 1.2 (1.1-1.5); ALKALINE PHOSPHATASE 91 IU/L (46-116); ANION GAP 6 (8-16); ASPARTATE AMINO TRANSFERASE 30 U/L (10-37); BILIRUBIN,TOTAL 0.4 MG/DL (0.1-1.0); BLOOD UREA NITROGEN 17 MG/DL (7-18); BUN/CREATININE RATIO 23.9 (10.0-20.0); CALCIUM 8.9 MG/DL (8.5-10.1); CHLORIDE 106 MMOL/L (99-107); CREATININE 0.71 MG/DL (0.40-0.90); GLUCOSE 115 MG/DL (70-104); POTASSIUM 3.7 MMOL/L (3.5-5.1); SODIUM 140 MMOL/L (135-145); TOTAL CARBON DIOXIDE 28.1 MMOL/L (24-32); TOTAL PROTEIN 6.9 G/DL (6.4-8.2); eGFR 85 ML/MIN
[2023-02-22 20:18] LABS: APTT 29 SECONDS (22-32)
== END 2023-02-22 20:46 | disposition home or self-care (01) ==
LOC: ER 14:07
DX: M71.21 Synovial cyst of popliteal space [Baker], right knee (principal); R60.0 Localized edema; Z88.0 Allergy status to penicillin; Z88.2 Allergy status to sulfonamides; Z79.899 Other long term (current) drug therapy
CPT/HCPCS: 36415; 80053; 85025; 85610; 85730; 93971; 99284